=== PATIENT | male | born 1985 | race African-American/Black ===

== ENCOUNTER 2017-08-10 23:21 | Emergency (ER) | payer SELFPAY | END 2017-08-10 23:59 | disposition left against medical advice (07) | LOC: ERS 23:21 | DX: Z53.21 Procedure and treatment not carried out due to patient leaving prior to being seen by health care provider (principal) ==

== ENCOUNTER 2017-10-10 19:44 | Observation (INO) | payer SELFPAY ==
[2017-10-10] MEDS ORDERED: Acetaminophen 500 MG TAB ONE (20:02)
[2017-10-10] MEDS ORDERED: Water For Inject, Bacteriostat 30 ML ONE (20:26)
[2017-10-10] MEDS ORDERED: methylPREDNISolone Sod Succ/PF 125 MG/2 ML VIAL ONE (20:26)
--- NOTE | 2017-10-10 20:31 | RAD ---
PA AND LATERAL VIEWS CHEST: 10/10/17 HISTORY: Cough. FINDINGS: Comparison is made with exam of 04/20/17. The heart size is normal. The lungs are expanded without focal areas of consolidation, pneumothorax o r pleural effusions. No acute osseous abnormalities are seen. IMPRESSION: No radiographic evidence of acute cardiopulmonary process. POS: [facility]
[2017-10-10] MEDS ORDERED: Magnesium Sulfate 2 GM/100 ML BAG ONE (20:42)
[2017-10-10 21:00] LABS: Hemoglobin 13.2 g/dL (14.0-18.0); Mean Corpuscular HGB CONC 32.7 g/dL (32.0-36.0); Mean Corpuscular Hemoglobin 27.6 pg (27.0-31.0); Mean Corpuscular Volume 84.4 fl (80.0-94.0); Mean Platelet Volume 9.2 fL (7.4-10.4); Platelet Count 253 thou/uL (130-400); RBC Distribution Width 14.5 % (11.5-14.5); Red Blood Cell (RBC) Count 4.79 mill/uL (4.70-6.10)
[2017-10-10 21:03] LABS: ALT (SGPT) 35 U/L (8-55); AST (SGOT) 67 U/L (5-34); Albumin 4.1 g/dL (3.5-5.0); Alkaline Phosphatase 89 U/L (40-150); Anion Gap 15 mmol/L (10-20); BUN (Urea Nitrogen) 9 mg/dL (8.9-20.6); Bilirubin, Total 0.3 mg/dL (0.2-1.2); Calc. Creatinine Clearance 0 mL/min (70-130); Calcium 9.2 mg/dL (7.8-10.44); Carbon Dioxide 28 mmol/L (22-29); Chloride 100 mmol/L (98-107); Estimated GFR-MDRD Greater than 90; Globulin 3.9 g/dL (2.4-3.5); Glucose 95 mg/dL (70-105); Potassium 3.9 mmol/L (3.5-5.1); Sodium 139 mmol/L (136-145)
[2017-10-10 21:13] LABS: Band 3 % (5-11); Eosinophils 1 % (0-10); Lymphocytes 29 % (21-51); MDiff Complete? YES; Monocytes 23 % (0-10); Neutrophil 43 % (42-75); RBC Morphology Normal
--- NOTE | 2017-10-10 22:49 | PDOC.FPRHP ---
- History of Present Illness Chief Complaint: SOB, Bronchitis History of Present Illness: 32 yo AA male comes in with c/c of bronchitis. Says had 2 day history of nasal congestion, runny nose and productive cough. Cough sputum yellow in color. Reports having pain in chest when he coughs. Reports having head congestion. Says has had allergies in past in which he has taken benadryll. has not taken any medicine for this. Denies any fever or chills. Denies n/v/d/c. Denies any chest pain. Denies any rashes. Asked about snoring and sleeping. Says that does have to wake him up occasionally during the night due to SOB. - Home Medications Comments: No medications - History PMHx: None PSHx: None FHx: Noncontributory Social: Smokes 3-4 cigs a day, Denies alcohol use, Denies Illegal drug use - Review of Systems General: denies: fever/chills, weight/appetite/sleep changes, night sweats, fatigue Eyes: denies: eye pain, vision changes ENT: reports: nasal congestion, rhinorrhea. denies: other Respiratory: reports: cough, congestion, shortness of breath. denies: exercise intolerance, other Cardiovascular: denies: chest pain, palpitation, edema, paroxysmal nocturnal dyspnea, orthopnea Gastrointestinal: denies: vomiting, diarrhea, constipation, abdominal pain, GI bleeding Genitourinary: denies: incontinence, dysuria, polyuria, discharge Skin: denies: rashes, lesions, jaundice, itching Musculoskeletal: denies: pain, tenderness, stiffness, swelling, arthritis/ arthralgias Neurological: denies: numbness, syncope, seizure, weakness Psychological: denies: anxiety, depression - Vital signs BP: [99/80] HR: [89] RR: [18] Tmax: [100.6] Pox: [96]% on [1L] - Physical Exam Constitutional: NAD, awake, alert and oriented, well developed HEENT: normocephalic and atraumatic, PERRLA, grossly normal vision, normal nasal mucosa, MMM Neck: supple, trachea midline, no LAD, no thyromegaly, no bruits -Neck: Unable to see back of pharynx. Large tongue Chest: no-tender to palpation, no lesions Heart: RRR, normal S1/S2, no murmurs/rubs/gallops, pulses present, no edema Lungs: no rales/rhonchi, no wheezing -Lungs: Decreased air movement bilaterally in both lungs. No wheezing noted. Abdomen: soft, non-tender, bowel sounds present, no masses/distention, no hernias Musculoskeletal: normal structure, normal tone, ROM grossly normal Neurological: no focal deficit, normal sensation Skin: no rash/lesions, good turgor, capillary refill <2 seconds, no jaundice Heme/Lymphatic: no unusual bruising or bleeding, no purpura, no petechia Psychiatric: normal mood and affect, good judgment and insight, intact recent and remote memory FMR H&P: Results - Labs Result Diagrams: 10/11/17 04:12 10/10/17 20:12 Lab results: WBC 6.0 thou/uL (4.8-10.8) 10/10/17 20:12 Hgb 13.2 g/dL (14.0-18.0) L 10/10/17 20:12 Hct 40.4 % (42.0-52.0) L 10/10/17 20:12 MCV 84.4 fl (80.0-94.0) 10/10/17 20:12 Plt Count 253 thou/uL (130-400) 10/10/17 20:12 Band Neuts % (Manual) 3 % (5-11) L 10/10/17 20:12 Sodium 139 mmol/L (136-145) 10/10/17 20:12 Potassium 3.9 mmol/L (3.5-5.1) 10/10/17 20:12 Chloride 100 mmol/L (98-107) 10/10/17 20:12 Carbon Dioxide 28 mmol/L (22-29) 10/10/17 20:12 BUN 9 mg/dL (8.9-20.6) 10/10/17 20:12 Creatinine 1.02 mg/dL (0.6-1.3) 10/10/17 20:12 Glucose 95 mg/dL (70-105) 10/10/17 20:12 Calcium 9.2 mg/dL (7.8-10.44) 10/10/17 20:12 Total Bilirubin 0.3 mg/dL (0.2-1.2) 10/10/17 20:12 AST 67 U/L (5-34) H 10/10/17 20:12 ALT 35 U/L (8-55) 10/10/17 20:12 Alkaline Phosphatase 89 U/L (40-150) 10/10/17 20:12 Serum Total Protein 8.0 g/dL (6.0-8.3) 10/10/17 20:12 Albumin 4.1 g/dL (3.5-5.0) 10/10/17 20:12 Additional comment: Flu negative A and B - Radiology Interpretation Chest x-ray Status: image reviewed by me, report reviewed by me (No radiographic evidence of cardiopulmonary process) FMR H&P: A/P - Problem List (1) Acute respiratory failure with hypoxia Current Visit: Yes Status: Acute Code(s): J96.01 - ACUTE RESPIRATORY FAILURE WITH HYPOXIA (2) Tobacco abuse Current Visit: Yes Status: Acute Code(s): Z72.0 - TOBACCO USE (3) Obesity Current Visit: Yes Status: Acute Code(s): E66.9 - OBESITY, UNSPECIFIED - Plan 1. Acute hypoxia 2/2 bronchitis - Admit to medical as pt is stable on 1L oxygen via NC, is not tachypneic, and has no other vital sign instability. Recieved solumedrol, duonebs and mg in the ER and shown improvment. Was sating to low 80s on RA upon arrival to ER. -Had Fever of 100.6 upon admission. - Possible undiagnosed obstructive lung disease. Start Azithromycin and prednisone for 5 days. - NC to keep O2 > 90% and wean as tolerated. - Duonebs scheduled and PRN. 2. Tobacco abuse - Sales Utility Representative cessation - UDS 3. Likely LILIYA - CPAP qHS -Large body habitus, and airway not clear on exam. FMR H&P: Upper Level - Pertinent history 32 yo AAM with no reported PMH p/w productive cough, congestion, and wheezing over last couple of days. Pt notes he has had bronchitis before and this seems similar. Pt denies fevers/chills, NVD, abd pain, CP, sick contacts or recent travel. Pt takes no regular medications. Pt endorses tobacco use and denies alcohol or illicit drug use. Pt notes his believes he has sleep apnea as he often snores and "stops breathing." - Pertinent findings Gen: Obese, NAD CV: RRR, no murmurs Resp: unlabored, good inspiratory effort, chest tightness, no wheezing Abd: obese, +BS, NTTP - Plan Date/Time: 10/10/17 0944 I, Sonny Dallas MD, have evaluated this patient and agree with findings/plan as outlined by hospitality intern resident. Pertinent changes/additions are listed here. 1. Acute hypoxia 2/2 bronchitis - Admit to medical as pt is stable on 1L oxygen via NC, is not tachypneic, and has no other vital sign instability. - Possible undiagnosed obstructive lung disease. Start Azithromycin and prednisone for 5 days. - NC to keep O2 > 90% and wean as tolerated. - Duonebs scheduled and PRN. 2. Tobacco abuse - Sales Utility Representative cessation - UDS 3. Likely LILIYA - CPAP qHS Attending Addendum - Attending Addendum Date/Time: 10/11/17 1141 I personally evaluated the patient and discussed the management with Dr. Nunez I agree with the History, Examination, Assessment and Plan documented above with any addition or exceptions noted below.
[2017-10-10] MEDS ORDERED: Acetaminophen 650 MG Suppository PR PRN (23:39)
[2017-10-10] MEDS ORDERED: Acetaminophen 325 MG TAB PO PRN (23:39)
[2017-10-10] MEDS ORDERED: Ondansetron PF 4 MG/2 ML Vial IVP PRN (23:39)
[2017-10-10] MEDS ORDERED: Azithromycin 250 MG TAB PO SCH (23:39)
[2017-10-10] MEDS ORDERED: Ondansetron ODT 4 MG TAB PO PRN (23:39)
[2017-10-11 04:54] LABS: Amphetamine Not Detected (NotDetected); Barbiturates Screen Not Detected (NotDetected); Benzodiazepine Screen Not Detected (NotDetected); Cocaine Metabolite Screen Not Detected (NotDetected); Medtox Reader # READER 4; Methadone Not Detected (NotDetected); Methamphetamine Not Detected (NotDetected); Opiate Screen Not Detected (NotDetected); Oxycodone Screen Not Detected (NotDetected); Phencyclidine (PCP) Not Detected (NotDetected); THC/Cannabinoid Screen Not Detected (NotDetected); Tricyclic Screen Not Detected (NotDetected)
[2017-10-11 04:55] LABS: Medtox Control Line Valid? VALID (VALID)
[2017-10-11 05:13] LABS: #Lymphocytes 0.7 thou/uL (1.20-3.40); #Monocytes 0.2 thou/uL (0.11-0.59); #Neutrophils 4.6 thou/uL (1.40-6.50); %Basophils 0.2 % (0.0-1.0); %Eosinophils 0.5 % (0.0-10.0); %Lymphocytes 12.7 % (21.0-51.0); %Monocytes 3.1 % (0.0-10.0); %Neutrophils 83.5 % (42.0-75.0); Hemoglobin 13.5 g/dL (14.0-18.0); Mean Corpuscular HGB CONC 31.9 g/dL (32.0-36.0); Mean Corpuscular Hemoglobin 27.4 pg (27.0-31.0); Mean Platelet Volume 8.8 fL (7.4-10.4); Platelet Count 269 thou/uL (130-400); RBC Distribution Width 14.5 % (11.5-14.5); Red Blood Cell (RBC) Count 4.93 mill/uL (4.70-6.10); White Blood Cell (WBC) Count 5.5 thou/uL (4.8-10.8)
[2017-10-11 06:21] VITALS: BMI 48.2
[2017-10-11] MEDS ORDERED: predniSONE 50 MG TAB PO SCH (08:00)
[2017-10-11] MEDS ORDERED: Azithromycin 250 MG TAB PO SCH (09:00)
[2017-10-11 11:39] VITALS: BP 140/72; TEMP 98.2
--- NOTE | 2017-10-14 12:54 | DIS-2 ---
DATE OF ADMISSION: 10/10/2017 DATE OF DISCHARGE: 10/11/2017 ADMITTING RESIDENT: Adarsh Nunez MD DISCHARGE RESIDENT: Tess Espinosa DO CONSULTATIONS: None. PROCEDURES/IMAGING: Chest x-ray which revealed no acute cardiopulmonary process. PRIMARY DIAGNOSES: 1. Acute hypoxia secondary to bronchitis, resolved. 2. Bronchitis. SECONDARY DIAGNOSES: 1. Tobacco abuse. 2. Likely obstructive sleep apnea. DISCHARGE MEDICATIONS: 1. Albuterol sulfate 2.5 mg/3 mL vial 2.5 mg nebulized treatments q.4 hours. 2. Ipratropium bromide 0.5 mg nebs q.4 hours. 3. Azithromycin 250 mg p.o. daily. 4. Prednisone 50 mg p.o. daily to complete 5 day course. DISCONTINUED MEDICATIONS: None. HISTORY OF PRESENT ILLNESS/HOSPITAL COURSE: The patient is a 32-year-old -[place] male who c saman in with chief complaint of shortness of breath and cough. He had 2-day history of nasal congesti on, runny nose and productive cough. He had tried Benadryl for this without any relief. No fever or chills at home. On arrival, he did have oxygen saturation in the 80s on room air. He received Solu -Medrol, DuoNebs, and magnesium in the ER with some improvement. He was transferred up to the medica l floor on 1 liter of oxygen. Overnight, he did have a fever of 100.6. Chest x-ray revealed no evid ence of pneumonia. He did stay overnight and received another dose of prednisone in the morning as w ell as azithromycin of which he will continue for 5 days. He received DuoNeb treatments every 4 hour . With these medications and interventions, the patient was able to wean off the oxygen by morning. His condition is likely associated with bronchitis. This is worsened by patient's current tobacco a buse which he was counseled on cessation. It is also worsened by patient's likely diagnosis of obstr uctive sleep apnea. Patient's significant other reports apneic spells overnight and loud snoring. C PAP was ordered for the patient during the stay, but CPAP was not available. He did use Ventimask ov ernight and had no desats. With his large body habitus and his airway Mallampati 3-4 on exam, it is recommended that he do an outpatient sleep study to make a complete diagnosis of obstructive sleep ap kathy and would benefit greatly from CPAP use on a nightly basis. The patient is uninsured and will fo llow up with [facility] to get this started. DISPOSITION: Stable. DISCHARGE INSTRUCTIONS: 1. Location: Home. 2. Diet: Regular. 3. Activity: As tolerated. 4. Follow up with [facility] in 1-2 weeks.
== END 2017-10-11 12:35 | disposition home or self-care (01) ==
LOC: ERS 19:44 → 2SW 22:15
PROVIDERS: ADMIT Family Medicine; ATTEND Family Medicine
DX: J40 Bronchitis, not specified as acute or chronic (principal); R09.02 Hypoxemia; F17.210 Nicotine dependence, cigarettes, uncomplicated; E66.9 Obesity, unspecified; Z68.42 Body mass index [BMI] 45.0-49.9, adult
CPT/HCPCS: 36415; 71046; 80053; 80306; 85025; 87040; 87804; 94640; 94760; 96365; 96375; 99406; G0378; J2930; J3475; J7620

== ENCOUNTER 2018-02-21 20:54 | Emergency (ER) | payer SELFPAY ==
[2018-02-21] MEDS ORDERED: Ketorolac Tromethamine 60 MG/2 ML VIAL ONE (22:50)
== END 2018-02-21 23:45 | disposition home or self-care (01) ==
LOC: ERS 20:54
DX: S70.02XA Contusion of left hip, initial encounter (principal); F17.210 Nicotine dependence, cigarettes, uncomplicated; J45.909 Unspecified asthma, uncomplicated; G47.30 Sleep apnea, unspecified; J40 Bronchitis, not specified as acute or chronic; Z71.6 Tobacco abuse counseling; W22.19XA Striking against or struck by other automobile airbag, initial encounter; V43.62XA Car passenger injured in collision with other type car in traffic accident, initial encounter
CPT/HCPCS: 96372; 99406; J1885

== ENCOUNTER 2019-12-01 22:24 | Emergency (ER) | payer SELFPAY ==
[2019-12-01 22:51] LABS: Bilirubin Negative (Negative); Blood, Urine Negative (Negative); Clarity Clear (Clear); Glucose, Urine (Dipstick) Normal (Negative); Leukocyte Negative Leu/uL (Negative); Nitrite Negative (Negative); Protein, Urine (Dipstick) 20 mg/dL (Neg-Trace)
== END 2019-12-01 23:15 | disposition home or self-care (01) ==
LOC: ERS 22:24
DX: R35.0 Frequency of micturition (principal); J45.909 Unspecified asthma, uncomplicated; G47.30 Sleep apnea, unspecified; F17.290 Nicotine dependence, other tobacco product, uncomplicated
CPT/HCPCS: 81003; 99281

== ENCOUNTER 2021-01-03 19:41 | Emergency (ER) | payer SELFPAY | END 2021-01-03 21:00 | disposition home or self-care (01) | LOC: ERS 19:41 | DX: B34.9 Viral infection, unspecified (principal); Z87.891 Personal history of nicotine dependence; J45.909 Unspecified asthma, uncomplicated | CPT/HCPCS: 99283 ==

== ENCOUNTER 2021-01-23 10:43 | Emergency (ER) | payer SELFPAY ==
[2021-01-23 21:12] LABS: SARS-CoV-2 PCR by NAA Not Detected (NotDetected)
== END 2021-01-23 12:37 | disposition home or self-care (01) ==
LOC: ERS 10:43
DX: B34.9 Viral infection, unspecified (principal); J45.909 Unspecified asthma, uncomplicated; G47.30 Sleep apnea, unspecified; Z20.822 Contact with and (suspected) exposure to COVID-19; Z87.891 Personal history of nicotine dependence
CPT/HCPCS: 99283; U0003; U0005

== ENCOUNTER 2024-02-21 19:16 | Emergency (ER) | payer BC, SELFPAY | END 2024-02-21 19:56 | disposition home or self-care (01) | LOC: ERS 19:16 | DX: H10.89 Other conjunctivitis (principal); Z87.891 Personal history of nicotine dependence | CPT/HCPCS: 99283 ==